=== PATIENT | female | born 1995 | race Caucasian/White ===

== ENCOUNTER 2020-01-10 13:41 | Inpatient (IN) ==
[2020-01-10] MEDS ORDERED: ONDANSETRON 4 MG/2 ML VIAL IV PRN (14:25)
[2020-01-10] MEDS ORDERED: MEPERIDINE 50 MG/1 ML VIAL IV PRN (14:25)
[2020-01-10] MEDS ORDERED: BUTORPHANOL 2 MG/ML VIAL IV PRN (14:25)
[2020-01-10 14:55] LABS: Basophils % 0.2 % (0.0-0.8); Eosinophils # 0.1 10*3/uL (0.0-0.87); Eosinophils % 1.7 % (0.00-10.9); Hematocrit 34.3 VOL% (35.7-47.0); Immature Granulocytes % 0.5 %; Immature Granulocytes Absolute 0.04 #; Lymphocytes # 1.5 10*3/uL (1.4-4.0); Mean Corpuscular HGB Conc 32.1 GM/DL (32-36); Mean Corpuscular Volume 94.2 FL (87-102); Mean Platelet Volume 11.4 FL (9.6-12.0); Monocytes % 6.2 % (1.7-12.7); Neutrophils % 72.4 % (38.7-73.9); Platelet Count 163 T/CUMM (130-400); Red Blood Count 3.64 MC/CUMM (3.8-5.5); Red Cell Distribution Width 12.6 % (9.3-17.3); White Blood Count 8.1 T/CUMM (4-12)
[2020-01-10] MEDS ORDERED: OXYTOCIN/LR 0 UNIT/0 ML BAG IV ONE (23:51)
[2020-01-10] MEDS ORDERED: CARBOPROST TROMETHAMINE 250 MCG/ML AMP IM ONE (23:51)
[2020-01-10] MEDS ORDERED: miSOPROStoL 200 MCG TABLET ONE (23:51)
[2020-01-10] MEDS ORDERED: TRANEXAMIC ACID 1,000 MG/10 ML VIAL ONE (23:51)
[2020-01-10] MEDS ORDERED: METHYLERGONOVINE 0.2 MG/1 ML AMP ONE (23:51)
[2020-01-10] MEDS ORDERED: OXYTOCIN 10 UNIT/ML VIAL ONE (23:52)
[2020-01-10] MEDS ORDERED: SODIUM CHLORIDE 0.9% 0 ML IV ONE (23:52)
[2020-01-10] MEDS ORDERED: LIDOCAINE 1% 50 ML VIAL ONE (23:54)
[2020-01-11] MEDS ORDERED: METHYLERGONOVINE 0.2 MG/1 ML AMP IM ONE (03:15)
[2020-01-11] MEDS: IBUPROFEN 800 MG TABLET PO PRN ×2 (13:47→21:58)
[2020-01-11] MEDS ORDERED: OXYTOCIN/LR 20 UNIT/1,000 ML BAG IV ONE (14:34)
[2020-01-11] MEDS ORDERED: LANOLIN 50% CREAM 0.3 OZ TUBE TOP PRN (14:34)
[2020-01-11] MEDS ORDERED: BISACODYL 10 MG SUPP RECTAL PRN (14:34)
[2020-01-11] MEDS ORDERED: BENZOCAINE 20%/MENTHOL 0.5% SPRAY 56 GM CAN TOP PRN (14:34)
[2020-01-11] MEDS ORDERED: HYDROCORTISONE 2.5% RECTAL CREAM 30 GM TUBE TOP PRN (14:34)
[2020-01-11] MEDS ORDERED: ACETAMINOPHEN 325 MG TABLET PO PRN (14:34)
[2020-01-11] MEDS ORDERED: WITCH HAZEL PADS 100/JAR TOP PRN (14:34)
[2020-01-11 14:40] LABS: Basophils % 0.2 % (0.0-0.8); Eosinophils % 0.4 % (0.00-10.9); Hematocrit 33.8 VOL% (35.7-47.0); Hemoglobin 11.2 GM/DL (12.0-16.0); Immature Granulocytes % 0.5 %; Immature Granulocytes Absolute 0.05 #; Lymphocytes # 1.7 10*3/uL (1.4-4.0); Lymphocytes % 15.6 % (21.3-54.2); Mean Corpuscular HGB Conc 33.1 GM/DL (32-36); Mean Corpuscular Volume 93.1 FL (87-102); Mean Platelet Volume 11.3 FL (9.6-12.0); Neutrophils % 77.3 % (38.7-73.9); Platelet Count 145 T/CUMM (130-400); Red Blood Count 3.63 MC/CUMM (3.8-5.5); Red Cell Distribution Width 12.4 % (9.3-17.3); White Blood Count 11.1 T/CUMM (4-12)
[2020-01-11] MEDS: DOCUSATE SODIUM 100 MG CAPSULE PO SCH (21:58)
[2020-01-12] MEDS ORDERED: MULTIVITAMIN (PRENATAL) TABLET PO SCH (09:00)
[2020-01-12] MEDS: DOCUSATE SODIUM 100 MG CAPSULE PO SCH (10:11)
[2020-01-12 11:16] VITALS: BP 104/47
[2020-01-12] MEDS ORDERED: IBUPROFEN 800 MG TABLET PO PRN (12:47)
== END 2020-01-12 16:35 | disposition home or self-care (01) | DRG 807 ==
LOC: N.LDOUT 13:41 → N.LD 13:44 → N.OB 01-11 14:40
PROVIDERS: ADMIT Obstetrics & Gynecology; ATTEND Obstetrics & Gynecology